=== PATIENT | female | born 1970 | race Caucasian/White ===

== ENCOUNTER 2019-02-18 11:09 | Emergency (ER) | payer SELFPAY ==
[~2019-02-18] VITALS: Ht 157.5 cm; Wt 61.4 kg
[2019-02-18] MEDS ORDERED: heparin sodium, porcine/PF 100unit/ml 5ML syringe IV PRN (11:40)
[2019-02-18 12:38] LABS: BASOPHILS % (AUTO) 0.2 % (0-1); EOSINOPHILS # (AUTO) 0.1 X10'3 (0-0.9); EOSINOPHILS % (AUTO) 1.5 % (0-6); HEMATOCRIT 39.7 % (35.0-45.0); LYMPHOCYTES # (AUTO) 1.6 X10'3 (1.1-4.8); LYMPHOCYTES % (AUTO) 25.7 % (21-51); MEAN CORPUSCULAR HEMOGLOBIN 33.4 PG (27.0-31.0); MEAN CORPUSCULAR HGB CONC 35.4 g/dL (33.0-36.5); MEAN CORPUSCULAR VOLUME 94.4 FL (78-98); MEAN PLATELET VOLUME 8.1 FL (7.4-10.4); MONOCYTES # (AUTO) 0.4 X10'3 (0-0.9); MONOCYTES % (AUTO) 6.5 % (2-12); NEUTROPHILS # (AUTO) 4.1 X10'3 (1.8-7.7); NEUTROPHILS % (AUTO) 66.1 % (42-75); PLATELET COUNT 207 X10'3 (140-440); RED CELL DISTRIBUTION WIDTH 13.9 % (11.5-14.5); WHITE BLOOD COUNT 6.2 X10'3 (4.5-11.0)
[2019-02-18 12:48] LABS: ALANINE AMINOTRANSFERASE 34 U/L (12-78); ALBUMIN/GLOBULIN RATIO 1.1 (1.1-1.5); ALKALINE PHOSPHATASE 42 IU/L (46-116); ANION GAP 12 (8-16); ASPARTATE AMINO TRANSFERASE 20 U/L (10-37); BILIRUBIN,TOTAL 0.9 MG/DL (0.1-1.0); BLOOD UREA NITROGEN 11 MG/DL (7-18); BUN/CREATININE RATIO 11.3 (6.6-38.0); CALCIUM 9.3 MG/DL (8.5-10.1); CHLORIDE 109 MMOL/L (99-107); CREATININE 0.97 MG/DL (0.40-0.90); GLUCOSE 100 MG/DL (70-104); POTASSIUM 3.2 MMOL/L (3.5-5.1); SODIUM 143 MMOL/L (135-145); TOTAL CARBON DIOXIDE 22.4 MMOL/L (24-32); TOTAL PROTEIN 7.5 G/DL (6.4-8.2); eGFR 62 ML/MIN
[2019-02-18 12:58] LABS: D-DIMER < 0.19 MG/L FEU (0-0.50); PARTIAL THROMBOPLASTIN TIME 26 SECONDS (22-32)
[2019-02-18] MEDS ORDERED: ketorolac trometh. 30mg/ml inj. IV ONE (13:10)
[2019-02-18] MEDS ORDERED: metoprolol tartrate 1mg/ml inj IV ONE (13:10)
[2019-02-18 13:45] VITALS: BP 119/43
== END 2019-02-18 13:50 | disposition home or self-care (01) ==
LOC: ER 11:10
DX: R00.0 Tachycardia, unspecified (principal); G35 Multiple sclerosis; I49.9 Cardiac arrhythmia, unspecified; Z88.8 Allergy status to other drugs, medicaments and biological substances
CPT/HCPCS: 36415; 71045; 80053; 84484; 85025; 85379; 85610; 85730; 93005; 96374; 96375; 99284; J1885; J3490

== ENCOUNTER 2019-03-17 15:28 | Emergency (ER) | payer SELFPAY ==
[~2019-03-17] VITALS: Ht 157.5 cm; Wt 82.0 kg
[2019-03-17 15:49] VITALS: BP 145/102
[2019-03-17 15:54] LABS: CLARITY,URINE CLEAR (Clear); COLOR,URINE STRAW (Yellow); GLUCOSE, URINE NEGATIVE (Neg); KETONES,URINE NEGATIVE (Neg); LEUKOCYTE ESTERASE ,URINE NEGATIVE (Neg); NITRITES, URINE NEGATIVE (Neg); OCCULT BLOOD,URINE NEGATIVE (Neg); PROTEIN,URINE NEGATIVE (Neg); UROBILINOGEN,URINE 0.2 E.U/dL (0.2-1.0)
[2019-03-17 15:55] LABS: URINE HCG NEGATIVE (NEG)
[2019-03-17 16:24] LABS: UA COLLECTION TYPE CLN CATCH MIDSTREAM
[2019-03-17 16:39] LABS: BASOPHILS % (AUTO) 0.4 % (0-1); EOSINOPHILS # (AUTO) 0.3 X10'3 (0-0.9); EOSINOPHILS % (AUTO) 3.3 % (0-6); HEMATOCRIT 39.6 % (35.0-45.0); HEMOGLOBIN 13.9 g/dl (12.0-16.0); LYMPHOCYTES # (AUTO) 2.2 X10'3 (1.1-4.8); LYMPHOCYTES % (AUTO) 25.1 % (21-51); MEAN CORPUSCULAR HEMOGLOBIN 33.7 PG (27.0-31.0); MEAN CORPUSCULAR HGB CONC 35.1 g/dL (33.0-36.5); MEAN CORPUSCULAR VOLUME 95.9 FL (78-98); MEAN PLATELET VOLUME 7.6 FL (7.4-10.4); MONOCYTES # (AUTO) 0.7 X10'3 (0-0.9); MONOCYTES % (AUTO) 7.8 % (2-12); NEUTROPHILS # (AUTO) 5.5 X10'3 (1.8-7.7); NEUTROPHILS % (AUTO) 63.4 % (42-75); PLATELET COUNT 240 X10'3 (140-440); RED BLOOD COUNT 4.12 X10'6 (4.20-5.60); RED CELL DISTRIBUTION WIDTH 14.2 % (11.5-14.5); WHITE BLOOD COUNT 8.7 X10'3 (4.5-11.0)
[2019-03-17 16:47] LABS: PARTIAL THROMBOPLASTIN TIME 28 SECONDS (22-32)
[2019-03-17 16:50] LABS: ALANINE AMINOTRANSFERASE 37 U/L (12-78); ALBUMIN 4.1 G/DL (3.4-5.0); ALBUMIN/GLOBULIN RATIO 1.1 (1.1-1.5); ALKALINE PHOSPHATASE 44 IU/L (46-116); ANION GAP 10 (8-16); ASPARTATE AMINO TRANSFERASE 18 U/L (10-37); BILIRUBIN,TOTAL 0.8 MG/DL (0.1-1.0); BLOOD UREA NITROGEN 12 MG/DL (7-18); BUN/CREATININE RATIO 15.2 (6.6-38.0); CALCIUM 9.3 MG/DL (8.5-10.1); CHLORIDE 107 MMOL/L (99-107); CREATININE 0.79 MG/DL (0.40-0.90); GLUCOSE 104 MG/DL (70-104); POTASSIUM 3.5 MMOL/L (3.5-5.1); SODIUM 141 MMOL/L (135-145); TOTAL CARBON DIOXIDE 24.3 MMOL/L (24-32); TOTAL PROTEIN 7.7 G/DL (6.4-8.2); eGFR 78 ML/MIN
[2019-03-17] MEDS ORDERED: ALBU6.7H9 INH (17:03)
[2019-03-17] MEDS ORDERED: PRED20TA PO (17:17)
== END 2019-03-17 17:24 | disposition home or self-care (01) ==
LOC: ER 15:29
DX: R06.02 Shortness of breath (principal); R06.00 Dyspnea, unspecified; R05 Cough; R00.2 Palpitations; M54.9 Dorsalgia, unspecified; G35 Multiple sclerosis; Z88.8 Allergy status to other drugs, medicaments and biological substances; Z79.899 Other long term (current) drug therapy
CPT/HCPCS: 36415; 71046; 80053; 81003; 81025; 84484; 85025; 85610; 85730; 93005; 99284

== ENCOUNTER 2019-03-22 16:53 | Emergency (ER) | payer MEDICAID, OTHER ==
[~2019-03-22] VITALS: Ht 157.5 cm; Wt 86.4 kg
[~2019-03-22 16:53] MED LIST: ALBU6.7H9 INH; PRED20TA PO
[2019-03-22 21:23] LABS: BASOPHILS # (AUTO) 0.1 X10'3 (0-0.2); BASOPHILS % (AUTO) 0.7 % (0-1); EOSINOPHILS # (AUTO) 0.4 X10'3 (0-0.9); EOSINOPHILS % (AUTO) 4.1 % (0-6); HEMATOCRIT 36.9 % (35.0-45.0); LYMPHOCYTES # (AUTO) 2.1 X10'3 (1.1-4.8); LYMPHOCYTES % (AUTO) 24.9 % (21-51); MEAN CORPUSCULAR HGB CONC 35.3 g/dL (33.0-36.5); MEAN CORPUSCULAR VOLUME 96.4 FL (78-98); MEAN PLATELET VOLUME 7.8 FL (7.4-10.4); MONOCYTES # (AUTO) 0.7 X10'3 (0-0.9); MONOCYTES % (AUTO) 8.2 % (2-12); NEUTROPHILS # (AUTO) 5.3 X10'3 (1.8-7.7); NEUTROPHILS % (AUTO) 62.1 % (42-75); PLATELET COUNT 225 X10'3 (140-440); RED BLOOD COUNT 3.83 X10'6 (4.20-5.60); RED CELL DISTRIBUTION WIDTH 13.8 % (11.5-14.5); WHITE BLOOD COUNT 8.6 X10'3 (4.5-11.0)
[2019-03-22 21:35] LABS: ALANINE AMINOTRANSFERASE 37 U/L (12-78); ALBUMIN 3.8 G/DL (3.4-5.0); ALBUMIN/GLOBULIN RATIO 1.1 (1.1-1.5); ALKALINE PHOSPHATASE 40 IU/L (46-116); ANION GAP 8 (8-16); ASPARTATE AMINO TRANSFERASE 23 U/L (10-37); BILIRUBIN,TOTAL 0.7 MG/DL (0.1-1.0); BLOOD UREA NITROGEN 13 MG/DL (7-18); BUN/CREATININE RATIO 17.8 (6.6-38.0); CALCIUM 8.8 MG/DL (8.5-10.1); CHLORIDE 107 MMOL/L (99-107); CREATININE 0.73 MG/DL (0.40-0.90); GLUCOSE 96 MG/DL (70-104); POTASSIUM 3.5 MMOL/L (3.5-5.1); SODIUM 142 MMOL/L (135-145); TOTAL CARBON DIOXIDE 26.7 MMOL/L (24-32); TOTAL PROTEIN 7.3 G/DL (6.4-8.2); eGFR 86 ML/MIN
[2019-03-22 21:53] LABS: PARTIAL THROMBOPLASTIN TIME 123 SECONDS (22-32)
[2019-03-22] MEDS ORDERED: HYDROcodone/acetaminophen 10/325mg tab PO ONE (22:30)
[2019-03-22 22:35] VITALS: BP 146/82
[2019-03-22] MEDS ORDERED: IBUP-1986 PO (22:35)
[2019-03-22] MEDS ORDERED: GUAI473S11 PO (22:35)
[2019-03-22] MEDS ORDERED: heparin sodium, porcine/PF 100unit/ml 5ML syringe IV STA (22:40)
== END 2019-03-22 22:54 | disposition home or self-care (01) ==
LOC: ER 16:56
DX: R06.02 Shortness of breath (principal); M54.9 Dorsalgia, unspecified; G35 Multiple sclerosis; I10 Essential (primary) hypertension; Z90.49 Acquired absence of other specified parts of digestive tract; Z98.890 Other specified postprocedural states; Z88.8 Allergy status to other drugs, medicaments and biological substances; Z79.899 Other long term (current) drug therapy
CPT/HCPCS: 36415; 71045; 80053; 83880; 84443; 85025; 85610; 85651; 85730; 93005; 96374; 99284; J1642

== ENCOUNTER 2019-06-23 11:31 | Emergency (ER) | payer MEDICAID, MEDICARE ==
[~2019-06-23] VITALS: Ht 157.5 cm; Wt 86.4 kg
[~2019-06-23 11:31] MED LIST changes: +IBUP-1986 PO; -PRED20TA PO
[2019-06-23] MEDS ORDERED: metoclopramide 5 mg/ml inj IV ONE (12:15)
[2019-06-23] MEDS ORDERED: diphenhydrAMINE 50 mg/ml inj IV ONE (12:15)
[2019-06-23] MEDS ORDERED: normal saline 1000ML IV soln IVB ONE (12:15)
[2019-06-23] MEDS ORDERED: ketorolac trometh. 30mg/ml inj. IV ONE (12:15)
--- NOTE | 2019-06-23 12:29 | NUR ---
pt to ct via wheelchair
[2019-06-23 12:49] LABS: CLARITY,URINE SLIGHTLY CLOUDY (Clear); COLOR,URINE YELLOW (Yellow); GLUCOSE, URINE NEGATIVE (Neg); KETONES,URINE NEGATIVE (Neg); LEUKOCYTE ESTERASE ,URINE SMALL (Neg); NITRITES, URINE NEGATIVE (Neg); OCCULT BLOOD,URINE NEGATIVE (Neg); PROTEIN,URINE NEGATIVE (Neg); UROBILINOGEN,URINE 0.2 E.U/dL (0.2-1.0)
[2019-06-23 12:50] LABS: UA COLLECTION TYPE CLN CATCH MIDSTREAM
[2019-06-23 12:55] LABS: URINE AMPHETAMINE SCREEN NEGATIVE (Neg); URINE BARBITUATE SCREEN NEGATIVE (Neg); URINE BENZODIAZEPINES SCREEN NEGATIVE (Neg); URINE CANNABINOID SCREEN NEGATIVE (Neg); URINE COCAINE SCREEN NEGATIVE (Neg); URINE METHADONE SCREEN NEGATIVE (Neg); URINE OPIATE SCREEN NEGATIVE (Neg); URINE PHENCYCLIDINE SCREEN NEGATIVE (Neg)
[2019-06-23 12:57] LABS: BACTERIA,URINE FEW /HPF (Neg); MUCUS STRANDS FEW /LPF (Neg); RBC,URINE 0-2 /HPF (0-2); SQUAMOUS EPITHELIAL CELL,UR MANY /LPF (FEW)
[2019-06-23 14:11] LABS: BASOPHILS % (AUTO) 0.3 % (0-1); EOSINOPHILS % (AUTO) 0.7 % (0-6); HEMATOCRIT 35.8 % (35.0-45.0); HEMOGLOBIN 12.8 g/dl (12.0-16.0); LYMPHOCYTES # (AUTO) 1.7 X10'3 (1.1-4.8); LYMPHOCYTES % (AUTO) 27.3 % (21-51); MEAN CORPUSCULAR HEMOGLOBIN 33.6 PG (27.0-31.0); MEAN CORPUSCULAR HGB CONC 35.7 g/dL (33.0-36.5); MEAN PLATELET VOLUME 7.8 FL (7.4-10.4); MONOCYTES # (AUTO) 0.3 X10'3 (0-0.9); MONOCYTES % (AUTO) 4.8 % (2-12); NEUTROPHILS # (AUTO) 4.3 X10'3 (1.8-7.7); NEUTROPHILS % (AUTO) 66.9 % (42-75); PLATELET COUNT 206 X10'3 (140-440); RED CELL DISTRIBUTION WIDTH 13.2 % (11.5-14.5); WHITE BLOOD COUNT 6.4 X10'3 (4.5-11.0)
[2019-06-23 14:26] LABS: ALANINE AMINOTRANSFERASE 12 U/L (12-78); ALBUMIN 3.6 G/DL (3.4-5.0); ALKALINE PHOSPHATASE 30 IU/L (46-116); ANION GAP 11 (8-16); ASPARTATE AMINO TRANSFERASE 6 U/L (10-37); BILIRUBIN,TOTAL 0.4 MG/DL (0.1-1.0); BLOOD UREA NITROGEN 13 MG/DL (7-18); BUN/CREATININE RATIO 13.5 (6.6-38.0); CALCIUM 8.5 MG/DL (8.5-10.1); CHLORIDE 107 MMOL/L (99-107); CREATININE 0.96 MG/DL (0.40-0.90); GLUCOSE 93 MG/DL (70-104); POTASSIUM 3.8 MMOL/L (3.5-5.1); SODIUM 141 MMOL/L (135-145); TOTAL PROTEIN 7.1 G/DL (6.4-8.2); eGFR 63 ML/MIN
[2019-06-23] MEDS ORDERED: fentaNYL/PF 50MCG/1 ML 2ML syringe IV ONE (14:30)
--- NOTE | 2019-06-23 14:33 | NUR ---
Pt up to restroom.
[2019-06-23 15:37] VITALS: BP 124/68
== END 2019-06-23 15:39 | disposition home or self-care (01) ==
LOC: ER 11:32
DX: G43.909 Migraine, unspecified, not intractable, without status migrainosus (principal); R07.89 Other chest pain; R42 Dizziness and giddiness; R05 Cough; I10 Essential (primary) hypertension; Z90.49 Acquired absence of other specified parts of digestive tract; Z98.890 Other specified postprocedural states; Z91.041 Radiographic dye allergy status; Z79.899 Other long term (current) drug therapy
CPT/HCPCS: 36415; 70450; 80053; 80305; 81001; 85025; 93005; 96361; 96374; 96375; 99284; J1200; J1885; J2765; J3010; J7030

== ENCOUNTER 2020-01-20 08:59 | Day surgery (SDC) | payer MEDICARE, MEDICAID ==
[~2020-01-20] VITALS: Ht 157.5 cm; Wt 105.2 kg
[2020-01-20] MEDS ORDERED: albumin 25% 100mL bottle x 1 IV PRN (09:25)
[2020-01-20] MEDS ORDERED: normal saline 1000ml 1,000 ML IV SCH (09:30)
[2020-01-20] MEDS ORDERED: POTA8TAB3 PO (10:08)
[2020-01-20] MEDS ORDERED: CYAN250010 PO (10:08)
[2020-01-20] MEDS ORDERED: FLUT16SP2 BOTHNARES (10:08)
[2020-01-20] MEDS ORDERED: MULT-1085 PO (10:08)
[2020-01-20] MEDS ORDERED: DIPH50CA46 PO (10:08)
[2020-01-20] MEDS ORDERED: ROPI1TAB6 PO (10:08)
[2020-01-20] MEDS ORDERED: METO-411 PO (10:08)
[2020-01-20] MEDS ORDERED: IBUP-1984 PO (10:08)
[2020-01-20] MEDS ORDERED: BACL10TA PO (10:08)
[2020-01-20] MEDS ORDERED: ONDA4TAB6 PO (10:08)
[2020-01-20 10:09] VITALS: BP 143/72
== END 2020-01-20 11:10 | disposition home or self-care (01) ==
LOC: SSTAY O 08:59
PROVIDERS: ATTEND Radiology Vascular & Interventional Radiology
DX: T82.524A Displacement of infusion catheter, initial encounter (principal); Z53.8 Procedure and treatment not carried out for other reasons; G43.909 Migraine, unspecified, not intractable, without status migrainosus; G35 Multiple sclerosis; I10 Essential (primary) hypertension; Z90.49 Acquired absence of other specified parts of digestive tract; Z88.8 Allergy status to other drugs, medicaments and biological substances; Z79.899 Other long term (current) drug therapy; Z11.59 Encounter for screening for other viral diseases; Y83.8 Other surgical procedures as the cause of abnormal reaction of the patient, or of later complication, without mention of misadventure at the time of the procedure; Y92.89 Other specified places as the place of occurrence of the external cause
CPT/HCPCS: 36415; 76937; U0003

== ENCOUNTER 2020-01-23 10:37 | Day surgery (SDC) | payer MEDICARE, MEDICAID ==
[~2020-01-23] VITALS: Ht 157.5 cm; Wt 105.8 kg
[~2020-01-23 10:37] MED LIST changes: -ALBU6.7H9 INH; +BACL10TA PO; +CYAN250010 PO; +DIPH50CA46 PO; +FLUT16SP2 BOTHNARES; +IBUP-1984 PO; -IBUP-1986 PO; +METO-411 PO; +MULT-1085 PO; +ONDA4TAB6 PO; +POTA8TAB3 PO; +ROPI1TAB6 PO
[2020-01-23 11:05] VITALS: BP 124/69
[2020-01-23] MEDS ORDERED: normal saline 1000ml 1,000 ML IV SCH (11:10)
[2020-01-23] MEDS ORDERED: midazolam 2 mg/2 ml injection ONE ×2 (12:44→13:33)
[2020-01-23] MEDS ORDERED: heparin sodium, porcine/PF 100unit/ml 5ML syringe ONE (12:44)
[2020-01-23] MEDS ORDERED: fentaNYL/PF 50MCG/1 ML 2ML syringe ONE ×2 (12:44→13:33)
[2020-01-23] MEDS ORDERED: LIDOcaine 1%/PF 5ML 10 MG/ML VIAL ONE (12:44)
[2020-01-23 14:05] VITALS: BP 98/70
[2020-01-23 14:15] VITALS: BP 108/58
[2020-01-23 14:30] VITALS: BP 88/62
[2020-01-23 14:45] VITALS: BP 104/47
[2020-01-23 15:00] VITALS: BP 102/55
--- NOTE | 2020-01-23 15:00 | NUR ---
PATIENT'S VITAL SIGNS STABLE PATIENT IS STABLE. DR. BARON NOTIFIED AND UPDATED. OK FOR PATIENT TO BE DISCHARGED NOW.
== END 2020-01-23 15:25 | disposition home or self-care (01) ==
LOC: SSTAY O 10:37
PROVIDERS: ATTEND Radiology Vascular & Interventional Radiology
DX: T82.528A Displacement of other cardiac and vascular devices and implants, initial encounter (principal); G35 Multiple sclerosis; G32.89 Other specified degenerative disorders of nervous system in diseases classified elsewhere; Y83.8 Other surgical procedures as the cause of abnormal reaction of the patient, or of later complication, without mention of misadventure at the time of the procedure; Y92.89 Other specified places as the place of occurrence of the external cause
CPT/HCPCS: 36561; 76937; 77001; 99152; 99153; C1769; C1788; C1894; J1642; J2250; J3010; J7030

== ENCOUNTER 2020-02-12 09:25 | Day surgery (SDC) | payer MEDICARE, MEDICAID ==
[~2020-02-12] VITALS: Ht 157.5 cm; Wt 106.0 kg
[2020-02-12] VITALS (9 sets, daily range): BP systolic 102–138; BP diastolic 58–82
[~2020-02-12 09:25] MED LIST changes: +DOCUMENT DATE & TIME OF BETA-BLOCKER PO ONE; +cefazolin/dext.iso 2gm/50ml 50 ML IV ONE; +famotidine 20mg tablet PO ONE; +ringers solution, lacted 1,000 ML IV SCH
[2020-02-12 12:07] LABS: BASOPHILS # (AUTO) 0.1 X10'3 (0-0.2); BASOPHILS % (AUTO) 0.8 % (0-1); EOSINOPHILS # (AUTO) 0.2 X10'3 (0-0.9); EOSINOPHILS % (AUTO) 2.5 % (0-6); LYMPHOCYTES # (AUTO) 2.3 X10'3 (1.1-4.8); LYMPHOCYTES % (AUTO) 28.1 % (21-51); MEAN CORPUSCULAR HEMOGLOBIN 32.5 PG (27.0-31.0); MEAN CORPUSCULAR HGB CONC 35.1 g/dL (33.0-36.5); MEAN CORPUSCULAR VOLUME 92.6 FL (78-98); MEAN PLATELET VOLUME 7.3 FL (7.4-10.4); MONOCYTES # (AUTO) 0.5 X10'3 (0-0.9); MONOCYTES % (AUTO) 6.1 % (2-12); NEUTROPHILS # (AUTO) 5.2 X10'3 (1.8-7.7); NEUTROPHILS % (AUTO) 62.5 % (42-75); PRE OP HEMATOCRIT 38.4 % (35.0-45.0); PRE OP HEMOGLOBIN 13.5 g/dL (12.0-16.0); PRE OP PLATELET COUNT 260 X10'3 (140-440); RED BLOOD COUNT 4.14 X10'6 (4.20-5.60); RED CELL DISTRIBUTION WIDTH 13.8 % (11.5-14.5)
[2020-02-12] MEDS ORDERED: LIDOcaine 1% 30ml preserv. free vial ONE (12:15)
[2020-02-12 12:21] LABS: ALBUMIN 3.6 G/DL (3.4-5.0); ALBUMIN/GLOBULIN RATIO 0.9 (1.1-1.5); ALKALINE PHOSPHATASE 30 IU/L (46-116); BLOOD UREA NITROGEN 11 MG/DL (7-18); BUN/CREATININE RATIO 12.9 (6.6-38.0); CALCIUM 8.7 MG/DL (8.5-10.1); CHLORIDE 106 MMOL/L (99-107); CREATININE 0.85 MG/DL (0.40-0.90); PRE OP ALT 24 U/L (30-65); PRE OP ANION GAP 10 (8-16); PRE OP AST 18 U/L (10-37); PRE OP BILIRUB, TOTAL 0.4 MG/DL (0.0-1.0); PRE OP GLUCOSE 103 MG/DL (70-104); PRE OP POTASSIUM 4.2 MMOL/L (3.4-5.1); PRE OP SODIUM 139 MMOL/L (135-145); TOTAL CARBON DIOXIDE 22.6 MMOL/L (24-32); TOTAL PROTEIN 7.5 G/DL (6.4-8.2); eGFR 72 ML/MIN
[2020-02-12] MEDS ORDERED: BUPIVAcaine/PF 2.5 mg/ml (0.25%) 30ml vial ONE (12:37)
[2020-02-12] MEDS ORDERED: dexamethasone sod phosphate 10mg/ml inj ONE (12:47)
[2020-02-12] MEDS ORDERED: fentaNYL/PF 50MCG/1 ML 2ML syringe ONE (12:54)
[2020-02-12] MEDS ORDERED: MIDAZolam 5mg/5ml vial ONE ×2 (12:54→13:11)
[2020-02-12] MEDS ORDERED: ringers solution, lacted 1,000 ML IV SCH (13:01)
[2020-02-12] MEDS ORDERED: morphine 2 MG/ML inj. syringe IV PRN (13:05)
[2020-02-12] MEDS ORDERED: morphine 4 MG/ML inj SYRINge IV PRN (13:05)
[2020-02-12] MEDS ORDERED: ondansetron/PF 4mg/2ml inj IV PRN (13:05)
[2020-02-12] MEDS ORDERED: proCHLORperazine 10 MG/2 ml inj IV PRN (13:05)
[2020-02-12] MEDS ORDERED: meperidine/PF 25mg/ml syringe IV PRN ×3 (13:05)
--- NOTE | 2020-02-12 13:25 | NUR ---
Received from OR via BED, accompanied by Anesthesiologist DR BARRIENTOS-- and report given by Anesthesiolgist. PATIENT A&OX4, DENIES PAIN, V/S WNL, NEUROVASCULAR CHECKS INTACT, 20G PIV LUE, SCD ON, DRESSING TO LEFT CHEST CDI
[2020-02-12] MEDS ORDERED: HYDROcodone/acetaminophen 10/325mg tab PO ONE (14:10)
--- NOTE | 2020-02-12 14:35 | NUR ---
PATIENT A&OX4, DENIES PAIN, V/S WNL, NEUROVASCULAR CHECKS INTACT, 20G PIV LUE D/C, SCD OFF, DRESSING TO LEFT CHEST CDI. I HAVE REVIEWED D/C INSTRUCTIONS WITH PATIENT AND FAMILY AND THEY HAVE VERBALIZED UNDERSTANDING. PATIENT D/C HOME WITH ALL BELONGINGS AND FAMILY GAVE TRANSPORT HOME.
== END 2020-02-12 14:35 | disposition home or self-care (01) ==
LOC: PAS 09:25
PROVIDERS: ATTEND Surgery
DX: Z45.2 Encounter for adjustment and management of vascular access device (principal); G35 Multiple sclerosis; K21.9 Gastro-esophageal reflux disease without esophagitis; G43.909 Migraine, unspecified, not intractable, without status migrainosus; I10 Essential (primary) hypertension; Z90.49 Acquired absence of other specified parts of digestive tract; Z98.890 Other specified postprocedural states; Z79.899 Other long term (current) drug therapy; Z91.041 Radiographic dye allergy status; Z87.891 Personal history of nicotine dependence
CPT/HCPCS: 36415; 36590; 76937; 80053; 85025; J2001; J2250; J3010; J3490; A4215; A6258; A6449; A7000; J1100; J7120

== ENCOUNTER 2020-02-15 19:46 | Emergency (ER) | payer MEDICARE, MEDICAID ==
[~2020-02-15] VITALS: Ht 157.5 cm; Wt 106.6 kg
[~2020-02-15 19:46] MED LIST changes: -DOCUMENT DATE & TIME OF BETA-BLOCKER PO ONE; -cefazolin/dext.iso 2gm/50ml 50 ML IV ONE; -famotidine 20mg tablet PO ONE; -ringers solution, lacted 1,000 ML IV SCH
--- NOTE | 2020-02-15 23:05 | NUR ---
AMY SPOKE WITH VASCULAR; WILL CONTINUE TO MONITOR.
--- NOTE | 2020-02-15 23:08 | NUR ---
UPDATED ED MD OHLFS REGARDING PT'S PAIN, VERBAL ORDER FOR 600 MG IBUPROFEN
[2020-02-15] MEDS ORDERED: ibuprofen 200mg tablet PO ONE (23:10)
--- NOTE | 2020-02-15 23:59 | NUR ---
VASCULAR AT BEDSIDE
[2020-02-16 00:28] VITALS: BP 144/64
== END 2020-02-16 00:30 | disposition home or self-care (01) ==
LOC: ER 19:47
DX: M79.604 Pain in right leg (principal); R06.02 Shortness of breath; G43.909 Migraine, unspecified, not intractable, without status migrainosus; G35 Multiple sclerosis; I10 Essential (primary) hypertension; Z90.49 Acquired absence of other specified parts of digestive tract; Z98.890 Other specified postprocedural states; Z88.8 Allergy status to other drugs, medicaments and biological substances; Z79.899 Other long term (current) drug therapy
CPT/HCPCS: 93971; 99284; 99285

== ENCOUNTER 2020-03-03 10:20 | Emergency (ER) | payer MEDICARE, MEDICAID ==
[~2020-03-03] VITALS: Ht 157.5 cm; Wt 86.4 kg
[2020-03-03] MEDS ORDERED: HYDROcodone/acetaminophen 10/325mg tab PO ONE (10:35)
[2020-03-03] MEDS ORDERED: ketorolac trometh. 30mg/ml inj. IM ONE (11:00)
[2020-03-03] MEDS ORDERED: HYDR-4383 PO (11:22)
[2020-03-03 11:57] VITALS: BP 162/87
== END 2020-03-03 11:58 | disposition home or self-care (01) ==
LOC: ER 10:20
DX: M25.512 Pain in left shoulder (principal); R53.1 Weakness; G43.909 Migraine, unspecified, not intractable, without status migrainosus; I10 Essential (primary) hypertension; Z90.49 Acquired absence of other specified parts of digestive tract; Z98.890 Other specified postprocedural states; Z88.8 Allergy status to other drugs, medicaments and biological substances; Z79.899 Other long term (current) drug therapy
CPT/HCPCS: 73030; 96372; 99283; J1885

== ENCOUNTER 2020-11-05 20:52 | Emergency (ER) | payer MEDICARE, MEDICAID ==
[~2020-11-05] VITALS: Ht 157.5 cm; Wt 112.5 kg
[~2020-11-05 20:52] MED LIST changes: +HYDR-4383 PO
[2020-11-05 23:15] LABS: BASOPHILS % (AUTO) 0.3 % (0-1); EOSINOPHILS # (AUTO) 0.2 X10'3 (0-0.9); EOSINOPHILS % (AUTO) 2.1 % (0-6); HEMATOCRIT 40.1 % (35.0-45.0); LYMPHOCYTES # (AUTO) 1.9 X10'3 (1.1-4.8); LYMPHOCYTES % (AUTO) 23.7 % (21-51); MEAN CORPUSCULAR HEMOGLOBIN 32.1 PG (27.0-31.0); MEAN CORPUSCULAR HGB CONC 34.9 g/dL (33.0-36.5); MONOCYTES # (AUTO) 0.6 X10'3 (0-0.9); MONOCYTES % (AUTO) 7.8 % (2-12); NEUTROPHILS # (AUTO) 5.4 X10'3 (1.8-7.7); NEUTROPHILS % (AUTO) 66.1 % (42-75); PLATELET COUNT 297 X10'3 (140-440); RED BLOOD COUNT 4.36 X10'6 (4.20-5.60); RED CELL DISTRIBUTION WIDTH 14.6 % (11.5-14.5); WHITE BLOOD COUNT 8.1 X10'3 (4.5-11.0)
[2020-11-05 23:24] LABS: ALANINE AMINOTRANSFERASE 29 U/L (12-78); ALBUMIN 3.9 G/DL (3.4-5.0); ALBUMIN/GLOBULIN RATIO 0.8 (1.1-1.5); ALKALINE PHOSPHATASE 43 IU/L (46-116); ANION GAP 13 (8-16); ASPARTATE AMINO TRANSFERASE 20 U/L (10-37); BILIRUBIN,TOTAL 0.5 MG/DL (0.1-1.0); BLOOD UREA NITROGEN 10 MG/DL (7-18); CALCIUM 8.9 MG/DL (8.5-10.1); CHLORIDE 102 MMOL/L (99-107); CREATININE 1.11 MG/DL (0.40-0.90); GLUCOSE 114 MG/DL (70-104); POTASSIUM 3.2 MMOL/L (3.5-5.1); SODIUM 140 MMOL/L (135-145); TOTAL CARBON DIOXIDE 24.9 MMOL/L (24-32); TOTAL PROTEIN 8.5 G/DL (6.4-8.2); eGFR 53 ML/MIN
[2020-11-05] MEDS ORDERED: potassium Cl 20 mEq SR tablet PO STA (23:35)
[2020-11-05 23:54] VITALS: BP 173/95
== END 2020-11-05 23:50 | disposition home or self-care (01) ==
LOC: ER 20:52
DX: R00.2 Palpitations (principal); R50.9 Fever, unspecified; E87.6 Hypokalemia; G43.909 Migraine, unspecified, not intractable, without status migrainosus; I10 Essential (primary) hypertension; Z23 Encounter for immunization; Z90.49 Acquired absence of other specified parts of digestive tract; Z98.890 Other specified postprocedural states; Z88.8 Allergy status to other drugs, medicaments and biological substances; Z79.899 Other long term (current) drug therapy
CPT/HCPCS: 36415; 71045; 80053; 83880; 84484; 85025; 93005; 99285

== ENCOUNTER 2020-12-14 16:37 | Emergency (ER) | payer MEDICARE, MEDICAID ==
[~2020-12-14] VITALS: Ht 157.5 cm; Wt 111.0 kg
[2020-12-14 16:48] VITALS: BP 184/96
[2020-12-14] MEDS ORDERED: ALBU8HFA PO (17:40)
[2020-12-14] MEDS ORDERED: BENZ-16 PO (17:40)
[2020-12-14] MEDS ORDERED: AMOX-422 PO (17:40)
== END 2020-12-14 18:06 | disposition home or self-care (01) ==
LOC: ER 16:38
DX: J20.9 Acute bronchitis, unspecified (principal); G43.909 Migraine, unspecified, not intractable, without status migrainosus; I10 Essential (primary) hypertension; Z90.49 Acquired absence of other specified parts of digestive tract; Z88.8 Allergy status to other drugs, medicaments and biological substances; Z79.2 Long term (current) use of antibiotics; Z79.899 Other long term (current) drug therapy
CPT/HCPCS: 99283

== ENCOUNTER 2021-01-15 20:02 | Outpatient (CLI) | payer MEDICARE, MEDICAID ==
[2021-01-15 21:27] LABS: BASOPHILS % (AUTO) 0.4 % (0-1); EOSINOPHILS # (AUTO) 0.2 X10'3 (0-0.9); EOSINOPHILS % (AUTO) 2.9 % (0-6); HEMATOCRIT 36.9 % (35.0-45.0); HEMOGLOBIN 12.7 g/dl (12.0-16.0); LYMPHOCYTES # (AUTO) 2.6 X10'3 (1.1-4.8); LYMPHOCYTES % (AUTO) 32.1 % (21-51); MEAN CORPUSCULAR HEMOGLOBIN 31.2 PG (27.0-31.0); MEAN CORPUSCULAR HGB CONC 34.5 g/dL (33.0-36.5); MEAN CORPUSCULAR VOLUME 90.5 FL (78-98); MONOCYTES # (AUTO) 0.6 X10'3 (0-0.9); MONOCYTES % (AUTO) 7.9 % (2-12); NEUTROPHILS # (AUTO) 4.6 X10'3 (1.8-7.7); NEUTROPHILS % (AUTO) 56.7 % (42-75); PLATELET COUNT 299 X10'3 (140-440); RED BLOOD COUNT 4.07 X10'6 (4.20-5.60); RED CELL DISTRIBUTION WIDTH 13.6 % (11.5-14.5); WHITE BLOOD COUNT 8.1 X10'3 (4.5-11.0)
[2021-01-15 21:57] LABS: ALANINE AMINOTRANSFERASE 33 U/L (12-78); ALBUMIN 3.6 G/DL (3.4-5.0); ALBUMIN/GLOBULIN RATIO 1.1 (1.1-1.5); ALKALINE PHOSPHATASE 49 IU/L (46-116); ANION GAP 11 (8-16); ASPARTATE AMINO TRANSFERASE 28 U/L (10-37); BILIRUBIN,TOTAL 0.4 MG/DL (0.1-1.0); BLOOD UREA NITROGEN 12 MG/DL (7-18); CALCIUM 8.7 MG/DL (8.5-10.1); CHLORIDE 107 MMOL/L (99-107); GLUCOSE 64 MG/DL (70-104); POTASSIUM 3.8 MMOL/L (3.5-5.1); SODIUM 144 MMOL/L (135-145); TOTAL CARBON DIOXIDE 25.9 MMOL/L (24-32); eGFR 59 ML/MIN
== END 2021-01-15 23:59 | disposition home or self-care (01) ==
LOC: LAB SPEC 20:02
PROVIDERS: ATTEND Internal Medicine
DX: N17.9 Acute kidney failure, unspecified (principal); I10 Essential (primary) hypertension; Z79.2 Long term (current) use of antibiotics; Z90.49 Acquired absence of other specified parts of digestive tract
CPT/HCPCS: 36415; 80053; 83880; 84145; 85025

== ENCOUNTER 2021-11-30 21:48 | Observation (INO) | payer MEDICARE, MEDICAID ==
[~2021-11-30] VITALS: Ht 157.5 cm; Wt 115.9 kg
[~2021-11-30 21:48] MED LIST changes: +DIPH-907 PO; -DIPH50CA46 PO; -POTA8TAB3 PO; +POTA8TAB69 PO
[2021-11-30 22:46] LABS: BASOPHILS % (AUTO) 0.2 % (0-1); EOSINOPHILS # (AUTO) 0.3 X10'3 (0-0.9); EOSINOPHILS % (AUTO) 2.4 % (0-6); HEMATOCRIT 34.8 % (35.0-45.0); LYMPHOCYTES # (AUTO) 2.5 X10'3 (1.1-4.8); LYMPHOCYTES % (AUTO) 17.4 % (21-51); MEAN CORPUSCULAR HGB CONC 34.5 g/dL (33.0-36.5); MEAN CORPUSCULAR VOLUME 87.1 FL (78-98); MEAN PLATELET VOLUME 7.6 FL (7.4-10.4); MONOCYTES # (AUTO) 0.8 X10'3 (0-0.9); MONOCYTES % (AUTO) 5.2 % (2-12); NEUTROPHILS # (AUTO) 10.9 X10'3 (1.8-7.7); NEUTROPHILS % (AUTO) 74.8 % (42-75); PLATELET COUNT 314 X10'3 (140-440); RED BLOOD COUNT 3.99 X10'6 (4.20-5.60); RED CELL DISTRIBUTION WIDTH 15.4 % (11.5-14.5); WHITE BLOOD COUNT 14.6 X10'3 (4.5-11.0)
[2021-11-30 22:58] LABS: ALANINE AMINOTRANSFERASE 11 U/L (12-78); ALBUMIN 3.4 G/DL (3.4-5.0); ALBUMIN/GLOBULIN RATIO 0.9 (1.1-1.5); ALKALINE PHOSPHATASE 37 IU/L (46-116); ANION GAP 8 (8-16); ASPARTATE AMINO TRANSFERASE 21 U/L (10-37); BILIRUBIN,TOTAL 0.3 MG/DL (0.1-1.0); BLOOD UREA NITROGEN 10 MG/DL (7-18); BUN/CREATININE RATIO 9.6 (6.6-38.0); CALCIUM 8.3 MG/DL (8.5-10.1); CHLORIDE 103 MMOL/L (99-107); CREATININE 1.04 MG/DL (0.40-0.90); GLUCOSE 126 MG/DL (70-104); SODIUM 136 MMOL/L (135-145); TOTAL CARBON DIOXIDE 24.6 MMOL/L (24-32); TOTAL PROTEIN 7.2 G/DL (6.4-8.2); eGFR 57 ML/MIN
[2021-11-30 23:13] LABS: POTASSIUM 1.9 MMOL/L (3.5-5.1)
[2021-12-01] MEDS ORDERED: potassium Cl 20mEq/100mL bag 100 ML IV ONE ×3 (00:10→09:25)
--- NOTE | 2021-12-01 01:00 | NUR ---
NOTIFIED DR. CHAPMAN OF CONSISTENT HIGH BLOOD PRESSURE.
[2021-12-01] MEDS ORDERED: potassium Cl 20 mEq SR tablet PO ONE ×2 (02:45→05:30)
[2021-12-01] MEDS ORDERED: magnesium oxide 400mg tablet PO ONE (02:45)
[2021-12-01] MEDS ORDERED: potassium CL 10mEq/100ml bag 100 ML IV ONE ×2 (02:45→05:30)
[2021-12-01] MEDS ORDERED: magnesium 2GM in 50ml NS 50 ML IV ONE (02:45)
[2021-12-01 05:11] LABS: MAGNESIUM 1.9 MG/DL (1.5-2.4)
[2021-12-01 05:14] LABS: POTASSIUM 1.9 MMOL/L (3.5-5.1)
--- NOTE | 2021-12-01 09:12 | NUR ---
Called Dr. Murillo, discharge planner, re potassium lab 1.9 after 40 mEq IV and 40 mEq PO potassium and 2g IV Mg and 400 mg PO Mg; Blood pressure trending up: 194/93. No answer on telephone; no option for voice mail.
[2021-12-01] MEDS ORDERED: potassium Cl 20 mEq SR tablet PO STA ×2 (09:15→11:58)
--- NOTE | 2021-12-01 09:19 | NUR ---
Notified ER provider, Dr. Renteria, of low potassium and high blood pressure; orders placed.
[2021-12-01] MEDS ORDERED: metoprolol tartrate 50mg tablet PO ONE (09:20)
--- NOTE | 2021-12-01 10:34 | NUR ---
Patient assisted to bedside commode.
--- NOTE | 2021-12-01 12:30 | NUR ---
Patient assisted to bedside commode.
--- NOTE | 2021-12-01 12:36 | NUR ---
Patient given lunch tray.
[2021-12-01] MEDS ORDERED: acetaminophen 325mg tablet PO PRN ×2 (13:25)
[2021-12-01] MEDS ORDERED: ondansetron 4mg rapidly disintigrating tab PO PRN (13:25)
[2021-12-01] MEDS ORDERED: magnesium hydroxide 30ml (MOM) UD suspension PO PRN (13:25)
[2021-12-01] MEDS ORDERED: magnesium 4gm in 100ml NS 100 ML IV PRN (13:25)
[2021-12-01] MEDS ORDERED: ondansetron/PF 4mg/2ml inj IV PRN (13:25)
[2021-12-01] MEDS ORDERED: mag hydrox/Alum hydrox/simeth 30ml oral suspension PO PRN (13:25)
[2021-12-01] MEDS ORDERED: magnesium 2GM in 50ml NS 50 ML IV PRN (13:25)
[2021-12-01] MEDS ORDERED: acetaminophen 650mg rectal suppository RC PRN (13:25)
[2021-12-01] MEDS ORDERED: POTASSIUM BICARB 20meq eff tab 20 MEQ TABLET.EFF PO PRN ×2 (13:25)
[2021-12-01] MEDS ORDERED: magnesium Cl slow-release 64mg tablet PO PRN (13:25)
[2021-12-01] MEDS ORDERED: HYDROcodone/acetaminophen 10/325mg tab PO PRN (13:25)
[2021-12-01] MEDS ORDERED: HYDROcodone/acetaminophen 5mg/325mg tablet PO PRN (13:25)
[2021-12-01] MEDS ORDERED: ESCI-8 PO (13:46)
[2021-12-01] MEDS ORDERED: MODA100T31 PO (13:46)
[2021-12-01] MEDS ORDERED: LEVO5TAB13 PO (13:46)
[2021-12-01] MEDS ORDERED: BACL10TA2 PO (13:46)
[2021-12-01] MEDS ORDERED: PANT40TA54 PO (13:46)
[2021-12-01] MEDS ORDERED: MONT-40 PO (13:46)
[2021-12-01] MEDS ORDERED: HYDR-3927 PO (13:46)
[2021-12-01] MEDS ORDERED: IBUP-1986 PO (13:46)
[2021-12-01] MEDS ORDERED: NORT10CA2 PO (13:46)
[2021-12-01 14:06] LABS: BASOPHILS % (AUTO) 0.3 % (0-1); EOSINOPHILS # (AUTO) 0.1 X10'3 (0-0.9); EOSINOPHILS % (AUTO) 1.2 % (0-6); HEMATOCRIT 33.2 % (35.0-45.0); HEMOGLOBIN 11.4 g/dl (12.0-16.0); LYMPHOCYTES # (AUTO) 1.3 X10'3 (1.1-4.8); LYMPHOCYTES % (AUTO) 12.7 % (21-51); MEAN CORPUSCULAR HEMOGLOBIN 29.4 PG (27.0-31.0); MEAN CORPUSCULAR HGB CONC 34.4 g/dL (33.0-36.5); MEAN CORPUSCULAR VOLUME 85.3 FL (78-98); MEAN PLATELET VOLUME 7.6 FL (7.4-10.4); MONOCYTES # (AUTO) 0.4 X10'3 (0-0.9); NEUTROPHILS # (AUTO) 8.6 X10'3 (1.8-7.7); NEUTROPHILS % (AUTO) 81.8 % (42-75); PLATELET COUNT 300 X10'3 (140-440); RED BLOOD COUNT 3.89 X10'6 (4.20-5.60); RED CELL DISTRIBUTION WIDTH 15.7 % (11.5-14.5); WHITE BLOOD COUNT 10.5 X10'3 (4.5-11.0)
[2021-12-01] MEDS: potassium CL 10mEq/100ml bag 100 ML IV PRN ×3 (16:36→22:14)
[2021-12-01] MEDS ORDERED: METO100T14 PO (17:12)
[2021-12-01] MEDS ORDERED: TRAM50TA2 PO (17:12)
[2021-12-01] MEDS ORDERED: hydrOXYzine 25 MG tablet PO PRN (19:15)
[2021-12-01] MEDS ORDERED: traMADol 50MG tablet PO PRN (19:15)
[2021-12-01] MEDS: metoprolol tartrate 50mg tablet PO SCH (20:00)
[2021-12-01] MEDS: docusate sod 100mg capsule PO SCH (20:00)
[2021-12-01] MEDS: K and/or MAG REPLACEMENT MC SCH (20:00)
[2021-12-01] MEDS ORDERED: baclofen 10mg tablet PO SCH (21:00)
[2021-12-01 21:30] VITALS: BP 181/66
[2021-12-01 22:00] VITALS: BP 148/69
[2021-12-02] MEDS: potassium CL 10mEq/100ml bag 100 ML IV PRN ×5 (00:20→03:58)
[2021-12-02 02:00] VITALS: BP 117/45
--- NOTE | 2021-12-02 06:30 | NUR ---
Patient in room PCU 3014. I have received report from Treva LOMELI and had the opportunity to ask questions and assume patient care.
[2021-12-02 07:00] VITALS: BP 146/70
[2021-12-02] MEDS ORDERED: montelukast 10mg tablet PO SCH (08:00)
[2021-12-02] MEDS ORDERED: pantoprazole 40mg Tablet.DR PO SCH (08:00)
[2021-12-02] MEDS ORDERED: loratadine 10mg tablet PO SCH (08:00)
[2021-12-02] MEDS ORDERED: ESCITALOPRAM OXALATE 5 MG TABLET PO SCH (08:00)
[2021-12-02] MEDS ORDERED: modafinil 100mg tablet PO SCH (08:00)
[2021-12-02] MEDS: K and/or MAG REPLACEMENT MC SCH (08:00)
[2021-12-02] MEDS: docusate sod 100mg capsule PO SCH (08:00)
[2021-12-02] MEDS: ibuprofen tablet 400 MG TABLET PO SCH ×2 (08:20)
[2021-12-02] MEDS: metoprolol tartrate 50mg tablet PO SCH (08:21)
--- NOTE | 2021-12-02 08:33 | NUR ---
Page Sent promotional table spacer PAGER ID: [phone] MESSAGE: [id number]. Niki. Pt k is 3.2. Pt is wondering about IV/ oral combo, and running NS at 200 mL/hr while receiving K IV. Roberto RUBIO
[2021-12-02 09:53] LABS: BASOPHILS % (AUTO) 0.4 % (0-1); EOSINOPHILS # (AUTO) 0.2 X10'3 (0-0.9); EOSINOPHILS % (AUTO) 3.3 % (0-6); HEMATOCRIT 30.9 % (35.0-45.0); HEMOGLOBIN 10.5 g/dl (12.0-16.0); LYMPHOCYTES # (AUTO) 1.7 X10'3 (1.1-4.8); LYMPHOCYTES % (AUTO) 26.1 % (21-51); MEAN CORPUSCULAR HEMOGLOBIN 29.1 PG (27.0-31.0); MEAN CORPUSCULAR HGB CONC 33.9 g/dL (33.0-36.5); MEAN CORPUSCULAR VOLUME 85.7 FL (78-98); MEAN PLATELET VOLUME 7.7 FL (7.4-10.4); MONOCYTES # (AUTO) 0.4 X10'3 (0-0.9); MONOCYTES % (AUTO) 6.3 % (2-12); NEUTROPHILS # (AUTO) 4.2 X10'3 (1.8-7.7); NEUTROPHILS % (AUTO) 63.9 % (42-75); PLATELET COUNT 279 X10'3 (140-440); RED BLOOD COUNT 3.61 X10'6 (4.20-5.60); WHITE BLOOD COUNT 6.6 X10'3 (4.5-11.0)
[2021-12-02 10:04] LABS: ALANINE AMINOTRANSFERASE 14 U/L (12-78); ALBUMIN 2.8 G/DL (3.4-5.0); ALBUMIN/GLOBULIN RATIO 0.8 (1.1-1.5); ALKALINE PHOSPHATASE 29 IU/L (46-116); ANION GAP 11 (8-16); ASPARTATE AMINO TRANSFERASE 38 U/L (10-37); BILIRUBIN,TOTAL 0.4 MG/DL (0.1-1.0); BLOOD UREA NITROGEN 5 MG/DL (7-18); BUN/CREATININE RATIO 5.1 (6.6-38.0); CALCIUM 7.5 MG/DL (8.5-10.1); CHLORIDE 108 MMOL/L (99-107); CREATININE 0.98 MG/DL (0.40-0.90); GLUCOSE 171 MG/DL (70-104); POTASSIUM 3.4 MMOL/L (3.5-5.1); SODIUM 143 MMOL/L (135-145); TOTAL CARBON DIOXIDE 24.4 MMOL/L (24-32); TOTAL PROTEIN 6.1 G/DL (6.4-8.2); eGFR 61 ML/MIN
[2021-12-02 11:00] VITALS: BP 165/73
[2021-12-02] MEDS ORDERED: POTA10TA37 PO (12:30)
[2021-12-02] MEDS ORDERED: MAGN64TA8 PO (12:31)
--- NOTE | 2021-12-02 13:20 | NUR ---
Pt discahrged. IV and tele box removed with tele box [facility]. Reviewed discharge packet with pt and pt's father. Pt and pt's father were able to ask questions and verbalize understanding. Pt acknowledges that K is 3.4 and to take potassium and magnesium medication at discharge. Pharmacy at [facility] is called to verify that they received the prescription.Pt and pt's father walked out of the hospital to home.
== END 2021-12-02 13:20 | disposition home or self-care (01) ==
LOC: ER 21:48 → ED HOLD 12-01 13:25 → PCU 3S 12-01 20:30
PROVIDERS: ADMIT Family Medicine; ATTEND Family Medicine
DX: E87.6 Hypokalemia (principal); E83.42 Hypomagnesemia; I10 Essential (primary) hypertension; G35 Multiple sclerosis; N17.9 Acute kidney failure, unspecified; R00.0 Tachycardia, unspecified; G43.909 Migraine, unspecified, not intractable, without status migrainosus; R94.31 Abnormal electrocardiogram [ECG] [EKG]; Z79.899 Other long term (current) drug therapy
CPT/HCPCS: 36415; 71045; 80053; 83735; 84132; 84484; 85025; 87081; 93005; 96365; 96366; 96368; 99291; G0378; J3475; J3480

== ENCOUNTER 2021-12-24 18:10 | Outpatient (CLI) | payer MEDICARE, MEDICAID ==
[~2021-12-24 18:10] MED LIST changes: -BACL10TA PO; +BACL10TA2 PO; -CYAN250010 PO; -DIPH-907 PO; +ESCI-8 PO; -FLUT16SP2 BOTHNARES; +HYDR-3927 PO; -HYDR-4383 PO; -IBUP-1984 PO; +IBUP-1986 PO; +LEVO5TAB13 PO; +MAGN64TA8 PO; -METO-411 PO; +METO100T14 PO; +MODA100T31 PO; +MONT-40 PO; -MULT-1085 PO; -ONDA4TAB6 PO; +PANT40TA54 PO; +POTA10TA37 PO; -POTA8TAB69 PO; -ROPI1TAB6 PO; +TRAM50TA2 PO
[2021-12-24 19:06] LABS: ALANINE AMINOTRANSFERASE 17 U/L (12-78); ALBUMIN 3.5 G/DL (3.4-5.0); ALBUMIN/GLOBULIN RATIO 1.1 (1.1-1.5); ALKALINE PHOSPHATASE 40 IU/L (46-116); ANION GAP 9 (8-16); ASPARTATE AMINO TRANSFERASE 17 U/L (10-37); BILIRUBIN,TOTAL 0.2 MG/DL (0.1-1.0); BLOOD UREA NITROGEN 9 MG/DL (7-18); BUN/CREATININE RATIO 10.3 (6.6-38.0); CALCIUM 8.5 MG/DL (8.5-10.1); CHLORIDE 104 MMOL/L (99-107); CREATININE 0.87 MG/DL (0.40-0.90); GLUCOSE 105 MG/DL (70-104); SODIUM 139 MMOL/L (135-145); TOTAL CARBON DIOXIDE 25.6 MMOL/L (24-32); TOTAL PROTEIN 6.8 G/DL (6.4-8.2); eGFR 69 ML/MIN
== END 2021-12-24 23:59 | disposition home or self-care (01) ==
LOC: LAB SPEC 18:10
PROVIDERS: ATTEND Family Medicine
DX: N17.9 Acute kidney failure, unspecified (principal); I10 Essential (primary) hypertension
CPT/HCPCS: 36415; 80053; 83735

== ENCOUNTER 2022-08-21 21:23 | Emergency (ER) | payer MEDICARE, MEDICAID ==
[~2022-08-21] VITALS: Ht 157.5 cm; Wt 113.6 kg
[~2022-08-21 21:23] MED LIST changes: +POTA-206 PO; -POTA10TA37 PO
[2022-08-21 21:33] VITALS: BP 191/95
[2022-08-22] MEDS ORDERED: HYDROcodone/acetaminophen 5mg/325mg tablet PO ONE (00:35)
[2022-08-22] MEDS ORDERED: HYDR-3965 PO (00:36)
[2022-08-22] MEDS ORDERED: IBUP-1986 PO (00:36)
== END 2022-08-22 00:53 | disposition home or self-care (01) ==
LOC: ER 21:24
DX: S86.911A Strain of unspecified muscle(s) and tendon(s) at lower leg level, right leg, initial encounter (principal); M25.561 Pain in right knee; G43.909 Migraine, unspecified, not intractable, without status migrainosus; I10 Essential (primary) hypertension; Z90.49 Acquired absence of other specified parts of digestive tract; Z98.890 Other specified postprocedural states; Z88.8 Allergy status to other drugs, medicaments and biological substances; Z79.899 Other long term (current) drug therapy; X58.XXXA Exposure to other specified factors, initial encounter; Y93.89 Activity, other specified; Y92.89 Other specified places as the place of occurrence of the external cause; Y99.8 Other external cause status
CPT/HCPCS: 93971; 99284

== ENCOUNTER 2023-01-30 18:23 | Emergency (ER) | payer MEDICARE, MEDICAID ==
[~2023-01-30] VITALS: Ht 157.5 cm; Wt 113.6 kg
[2023-01-30] MEDS ORDERED: amLODIPine 5mg tablet PO ONE (18:45)
[2023-01-30 20:47] LABS: BASOPHILS % (AUTO) 0.5 % (0-1); EOSINOPHILS # (AUTO) 0.3 X10'3 (0-0.9); EOSINOPHILS % (AUTO) 3.3 % (0-6); HEMATOCRIT 37.2 % (35.0-45.0); HEMOGLOBIN 12.4 g/dl (12.0-16.0); LYMPHOCYTES # (AUTO) 2.4 X10'3 (1.1-4.8); LYMPHOCYTES % (AUTO) 24.3 % (21-51); MEAN CORPUSCULAR HEMOGLOBIN 29.4 PG (27.0-31.0); MEAN CORPUSCULAR HGB CONC 33.4 g/dL (33.0-36.5); MEAN PLATELET VOLUME 7.5 FL (7.4-10.4); MONOCYTES # (AUTO) 0.6 X10'3 (0-0.9); MONOCYTES % (AUTO) 5.9 % (2-12); NEUTROPHILS # (AUTO) 6.6 X10'3 (1.8-7.7); PLATELET COUNT 308 X10'3 (140-440); RED BLOOD COUNT 4.22 X10'6 (4.20-5.60); RED CELL DISTRIBUTION WIDTH 15.4 % (11.5-14.5)
[2023-01-30 21:08] LABS: ALANINE AMINOTRANSFERASE 49 U/L (12-78); ALBUMIN 4.3 G/DL (3.4-5.0); ALBUMIN/GLOBULIN RATIO 1.1 (1.1-1.5); ALKALINE PHOSPHATASE 58 IU/L (46-116); ANION GAP 13 (8-16); ASPARTATE AMINO TRANSFERASE 33 U/L (10-37); BILIRUBIN,TOTAL 0.3 MG/DL (0.1-1.0); BLOOD UREA NITROGEN 13 MG/DL (7-18); BUN/CREATININE RATIO 11.7 (10.0-20.0); CALCIUM 9.9 MG/DL (8.5-10.1); CHLORIDE 102 MMOL/L (99-107); CREATININE 1.11 MG/DL (0.40-0.90); GLUCOSE 101 MG/DL (70-104); POTASSIUM 3.1 MMOL/L (3.5-5.1); SODIUM 143 MMOL/L (135-145); TOTAL CARBON DIOXIDE 28.4 MMOL/L (24-32); TOTAL PROTEIN 8.1 G/DL (6.4-8.2); eGFR 52 ML/MIN
[2023-01-30] MEDS ORDERED: potassium Cl 20 mEq SR tablet PO STA (21:32)
[2023-01-30] MEDS ORDERED: HYDROcodone/acetaminophen 10/325mg tab PO ONE (21:35)
[2023-01-30] MEDS ORDERED: furosemide 20MG tablet PO ONE (21:35)
[2023-01-30 21:53] VITALS: BP 150/100
== END 2023-01-30 21:57 | disposition home or self-care (01) ==
LOC: ER 18:24
DX: R60.9 Edema, unspecified (principal); I10 Essential (primary) hypertension; G43.909 Migraine, unspecified, not intractable, without status migrainosus; Z91.041 Radiographic dye allergy status; Z90.49 Acquired absence of other specified parts of digestive tract
CPT/HCPCS: 36415; 71045; 80053; 83880; 85025; 93005; 99285

== ENCOUNTER 2024-02-28 18:29 | Inpatient (IN) | payer MEDICARE, MEDICAID ==
[~2024-02-28] VITALS: Ht 157.5 cm; Wt 117.3 kg
[2024-02-28 19:20] LABS: BASOPHILS % (AUTO) 0.4 % (0-1); EOSINOPHILS # (AUTO) 0.3 X10'3 (0-0.9); EOSINOPHILS % (AUTO) 2.9 % (0-6); HEMOGLOBIN 12.1 g/dl (12.0-16.0); LYMPHOCYTES # (AUTO) 2.4 X10'3 (1.1-4.8); MEAN CORPUSCULAR HEMOGLOBIN 30.7 PG (27.0-31.0); MEAN CORPUSCULAR HGB CONC 34.6 g/dL (33.0-36.5); MEAN CORPUSCULAR VOLUME 88.7 FL (78-98); MEAN PLATELET VOLUME 8.1 FL (7.4-10.4); MONOCYTES # (AUTO) 0.8 X10'3 (0-0.9); NEUTROPHILS # (AUTO) 5.9 X10'3 (1.8-7.7); NEUTROPHILS % (AUTO) 62.7 % (42-75); PLATELET COUNT 308 X10'3 (140-440); RED BLOOD COUNT 3.95 X10'6 (4.20-5.60); RED CELL DISTRIBUTION WIDTH 15.5 % (11.5-14.5); WHITE BLOOD COUNT 9.4 X10'3 (4.5-11.0)
[2024-02-28 19:29] LABS: ALANINE AMINOTRANSFERASE 32 U/L (12-78); ALBUMIN 4.3 G/DL (3.4-5.0); ALBUMIN/GLOBULIN RATIO 1.1 (1.1-1.5); ALKALINE PHOSPHATASE 55 IU/L (46-116); ANION GAP 10 (8-16); ASPARTATE AMINO TRANSFERASE 19 U/L (10-37); BILIRUBIN,TOTAL 0.7 MG/DL (0.1-1.0); BLOOD UREA NITROGEN 18 MG/DL (7-18); BUN/CREATININE RATIO 10.8 (10.0-20.0); CHLORIDE 99 MMOL/L (99-107); CREATINE KINASE 164 U/L (26-192); CREATININE 1.67 MG/DL (0.40-0.90); GLUCOSE 117 MG/DL (70-104); SODIUM 140 MMOL/L (135-145); TOTAL CARBON DIOXIDE 31.2 MMOL/L (24-32); TOTAL PROTEIN 8.3 G/DL (6.4-8.2); eCRCL 32 ML/MIN; eGFR 32 ML/MIN
[2024-02-28 19:35] LABS: POTASSIUM 2.2 MMOL/L (3.5-5.1)
[2024-02-28 20:14] LABS: APTT 28 SECONDS (22-32); INR 1.1 INR; PROTHROMBIN TIME 11.2 SECONDS (9.0-12.0)
[2024-02-28] MEDS: Potassium Cl inj 20 MEQ in normal saline 1000ml 990 ML IV SCH (20:17)
[2024-02-28 20:25] LABS: FREE T4 (FREE THYROXINE) 1.03 NG/DL (0.73-1.40); MAGNESIUM 1.3 MG/DL (1.5-2.4); THYROID STIMULATING HORMONE 1.18 ulU/ml (0.34-4.50)
[2024-02-28] MEDS ORDERED: magnesium hydroxide 30ml (MOM) UD suspension PO PRN (21:30)
[2024-02-28] MEDS ORDERED: potassium Cl 20 mEq SR tablet PO PRN ×2 (21:30)
[2024-02-28] MEDS ORDERED: mag hydrox/Alum hydrox/simeth 30ml oral suspension PO PRN (21:30)
[2024-02-28] MEDS ORDERED: acetaminophen 325mg tablet PO PRN (21:30)
[2024-02-28] MEDS ORDERED: ROPI1TAB47 PO (23:46)
[2024-02-28] MEDS ORDERED: HYDROXYZINE PAMOATE 25 MG PO PRN (23:55)
[2024-02-29] VITALS (8 sets, daily range): BP systolic 107–140; BP diastolic 43–78; PULSE 59–67; RESP 14–18; TEMP 97–98.6; O2SAT 94–99
[2024-02-29] MEDS: ibuprofen tablet 400 MG TABLET PO SCH
[2024-02-29] MEDS: traMADol 50MG tablet PO PRN (00:47)
[2024-02-29] MEDS: magnesium Cl slow-release 64mg tablet PO PRN (00:47)
[2024-02-29] MEDS: metoprolol tartrate 50mg tablet PO SCH (01:49)
[2024-02-29] MEDS: hydrOXYzine 25 MG tablet PO SCH (01:49)
[2024-02-29] MEDS: ROPINIRole 1mg tablet PO SCH (01:50)
[2024-02-29] MEDS: baclofen 10mg tablet PO SCH (01:50)
[2024-02-29] MEDS: ESCITALOPRAM 10 mg tablet 10 MG TABLET PO SCH (01:54)
[2024-02-29 06:29] LABS: ALBUMIN 3.5 G/DL (3.4-5.0); ANION GAP 11 (8-16); BLOOD UREA NITROGEN 14 MG/DL (7-18); BUN/CREATININE RATIO 13.2 (10.0-20.0); CALCIUM 8.3 MG/DL (8.5-10.1); CHLORIDE 102 MMOL/L (99-107); CREATININE 1.06 MG/DL (0.40-0.90); GLUCOSE 100 MG/DL (70-104); MAGNESIUM 1.3 MG/DL (1.5-2.4); SODIUM 140 MMOL/L (135-145); TOTAL CARBON DIOXIDE 27.1 MMOL/L (24-32); eCRCL 50 ML/MIN; eGFR 55 ML/MIN
[2024-02-29 06:32] LABS: BASOPHILS % (AUTO) 0.3 % (0-1); EOSINOPHILS # (AUTO) 0.2 X10'3 (0-0.9); EOSINOPHILS % (AUTO) 2.3 % (0-6); HEMATOCRIT 32.3 % (35.0-45.0); HEMOGLOBIN 11.1 g/dl (12.0-16.0); LYMPHOCYTES % (AUTO) 23.1 % (21-51); MEAN CORPUSCULAR HEMOGLOBIN 31.3 PG (27.0-31.0); MEAN CORPUSCULAR HGB CONC 34.5 g/dL (33.0-36.5); MEAN CORPUSCULAR VOLUME 90.8 FL (78-98); MEAN PLATELET VOLUME 8.1 FL (7.4-10.4); MONOCYTES # (AUTO) 0.8 X10'3 (0-0.9); MONOCYTES % (AUTO) 9.1 % (2-12); NEUTROPHILS # (AUTO) 5.6 X10'3 (1.8-7.7); NEUTROPHILS % (AUTO) 65.2 % (42-75); PLATELET COUNT 242 X10'3 (140-440); RED BLOOD COUNT 3.55 X10'6 (4.20-5.60); RED CELL DISTRIBUTION WIDTH 15.5 % (11.5-14.5); WHITE BLOOD COUNT 8.7 X10'3 (4.5-11.0)
[2024-02-29 06:33] LABS: POTASSIUM 2.2 MMOL/L (3.5-5.1)
[2024-02-29] MEDS: potassium Cl 40MEQ/1/2NS 520ml 520 ML IV PRN (07:28)
[2024-02-29] MEDS: pantoprazole 40mg Tablet.DR PO SCH (07:32)
[2024-02-29] MEDS: montelukast 10mg tablet PO SCH (07:32)
[2024-02-29] MEDS ORDERED: ROPINIRole 1mg tablet PO SCH (08:00)
[2024-02-29] MEDS: LEVOCETIRIZINE DIHYDROCHLORIDE 5 MG PO SCH (08:00)
[2024-02-29] MEDS: K and/or MAG REPLACEMENT MC SCH (08:00)
[2024-02-29] MEDS ORDERED: ESCITALOPRAM 10 mg tablet 10 MG TABLET PO SCH (08:00)
[2024-02-29] MEDS ORDERED: metoprolol tartrate 50mg tablet PO SCH (08:00)
[2024-02-29] MEDS: magnesium sulf-water 4G/100mL 100 ML IV PRN (08:21)
[2024-02-29] MEDS: modafinil 100mg tablet PO SCH (09:29)
[2024-02-29] MEDS: magnesium sulf-water 2g/50mL 50 ML IV PRN (11:03)
[2024-02-29] MEDS: diphenhydrAMINE 25mg capsule PO PRN (13:13)
[2024-02-29 17:30] LABS: BILIRUBIN,URINE NEGATIVE (Neg); CLARITY,URINE SLIGHTLY CLOUDY (Clear); COLOR,URINE YELLOW (Yellow); GLUCOSE, URINE NEGATIVE (Neg); KETONES,URINE NEGATIVE (Neg); LEUKOCYTE ESTERASE ,URINE MODERATE (Neg); NITRITES, URINE NEGATIVE (Neg); OCCULT BLOOD,URINE NEGATIVE (Neg); PROTEIN,URINE NEGATIVE (Neg); UROBILINOGEN,URINE 0.2 E.U/dL (0.2-1.0)
[2024-02-29 17:31] LABS: POTASSIUM 3.3 MMOL/L (3.5-5.1)
[2024-02-29 17:44] LABS: UA COLLECTION TYPE CLN CATCH MIDSTREAM
[2024-02-29 17:45] LABS: SQUAMOUS EPITHELIAL CELL,UR MANY /LPF (FEW)
[2024-02-29 17:45] LABS: FREE T4 (FREE THYROXINE) 0.87 NG/DL (0.73-1.40); THYROID STIMULATING HORMONE 0.56 ulU/ml (0.34-4.50)
[2024-02-29 17:46] LABS: HYALINE CASTS >30 /LPF (NEGATIVE)
[2024-02-29 17:49] LABS: BACTERIA,URINE 2+ /HPF (Neg); TOTAL PROTEIN,URINE RANDOM 46.7 MG/DL; WBC,URINE 50-100 /HPF (0-4)
[2024-02-29 17:50] LABS: RBC,URINE 0-2 /HPF (0-2)
[2024-02-29] MEDS ORDERED: baclofen 10mg tablet PO SCH (21:00)
[2024-02-29] MEDS: diatr meglu/diatrizoate 30ml oral sol.-(3 dose) bottle PO SCH (21:09)
[2024-02-29] MEDS: ondansetron/PF 4mg/2ml inj IV PRN (21:58)
[2024-02-29] MEDS: diphenhydrAMINE 50 mg/ml inj IV PRN (21:59)
[2024-02-29] MEDS: acetaminophen 1,000mg/100ml IV 100 ML IV ONE (23:11)
[2024-03-01] VITALS (8 sets, daily range): BP systolic 96–145; BP diastolic 40–70; PULSE 53–76; RESP 14–20; TEMP 97.1–98.4; O2SAT 96–100
[2024-03-01] MEDS: magnesium oxide 400mg tablet PO SCH
[2024-03-01 07:06] LABS: BASOPHILS % (AUTO) 0.6 % (0-1); EOSINOPHILS # (AUTO) 0.2 X10'3 (0-0.9); EOSINOPHILS % (AUTO) 3.8 % (0-6); HEMATOCRIT 29.6 % (35.0-45.0); HEMOGLOBIN 10.3 g/dl (12.0-16.0); LYMPHOCYTES # (AUTO) 1.9 X10'3 (1.1-4.8); LYMPHOCYTES % (AUTO) 31.1 % (21-51); MEAN CORPUSCULAR HEMOGLOBIN 31.5 PG (27.0-31.0); MEAN CORPUSCULAR HGB CONC 34.8 g/dL (33.0-36.5); MEAN CORPUSCULAR VOLUME 90.5 FL (78-98); MONOCYTES # (AUTO) 0.5 X10'3 (0-0.9); MONOCYTES % (AUTO) 8.1 % (2-12); NEUTROPHILS # (AUTO) 3.4 X10'3 (1.8-7.7); NEUTROPHILS % (AUTO) 56.4 % (42-75); PLATELET COUNT 227 X10'3 (140-440); RED BLOOD COUNT 3.27 X10'6 (4.20-5.60); RED CELL DISTRIBUTION WIDTH 15.8 % (11.5-14.5); WHITE BLOOD COUNT 6.1 X10'3 (4.5-11.0)
[2024-03-01 07:16] LABS: ANION GAP 4 (8-16); BLOOD UREA NITROGEN 12 MG/DL (7-18); BUN/CREATININE RATIO 11.3 (10.0-20.0); CALCIUM 8.2 MG/DL (8.5-10.1); CHLORIDE 109 MMOL/L (99-107); CREATININE 1.06 MG/DL (0.40-0.90); GLUCOSE 155 MG/DL (70-104); MAGNESIUM 2.4 MG/DL (1.5-2.4); POTASSIUM 3.1 MMOL/L (3.5-5.1); SODIUM 141 MMOL/L (135-145); TOTAL CARBON DIOXIDE 28.4 MMOL/L (24-32); eCRCL 50 ML/MIN; eGFR 55 ML/MIN
[2024-03-01] MEDS: spironolactone 50 MG tablet PO SCH (07:17)
[2024-03-01] MEDS ORDERED: iohexol 300mg/ml 100ml inj. ONE (09:30)
[2024-03-01] MEDS: normal saline 1000ml 1,000 ML IV SCH (15:29)
[2024-03-01 17:48] LABS: MAGNESIUM 2.1 MG/DL (1.5-2.4); POTASSIUM 3.8 MMOL/L (3.5-5.1)
[2024-03-02 02:00] VITALS: BP 118/48; PULSE 59; RESP 17; TEMP 97.5; O2SAT 99
[2024-03-02 06:00] VITALS: BP 124/56; PULSE 62; RESP 14; TEMP 97.8; O2SAT 96
[2024-03-02 06:08] LABS: ANION GAP 8 (8-16); BLOOD UREA NITROGEN 11 MG/DL (7-18); CALCIUM 8.3 MG/DL (8.5-10.1); CHLORIDE 108 MMOL/L (99-107); CREATININE 0.92 MG/DL (0.40-0.90); GLUCOSE 146 MG/DL (70-104); MAGNESIUM 1.9 MG/DL (1.5-2.4); POTASSIUM 3.4 MMOL/L (3.5-5.1); SODIUM 143 MMOL/L (135-145); eCRCL 57 ML/MIN; eGFR 64 ML/MIN
[2024-03-02 06:22] LABS: BASOPHILS % (AUTO) 0.5 % (0-1); EOSINOPHILS # (AUTO) 0.4 X10'3 (0-0.9); EOSINOPHILS % (AUTO) 4.9 % (0-6); HEMATOCRIT 30.1 % (35.0-45.0); HEMOGLOBIN 10.3 g/dl (12.0-16.0); LYMPHOCYTES # (AUTO) 2.2 X10'3 (1.1-4.8); MEAN CORPUSCULAR HGB CONC 34.2 g/dL (33.0-36.5); MEAN CORPUSCULAR VOLUME 90.6 FL (78-98); MEAN PLATELET VOLUME 8.4 FL (7.4-10.4); MONOCYTES # (AUTO) 0.6 X10'3 (0-0.9); MONOCYTES % (AUTO) 7.6 % (2-12); NEUTROPHILS # (AUTO) 4.3 X10'3 (1.8-7.7); PLATELET COUNT 238 X10'3 (140-440); RED BLOOD COUNT 3.32 X10'6 (4.20-5.60); WHITE BLOOD COUNT 7.5 X10'3 (4.5-11.0)
[2024-03-02 08:40] VITALS: RESP 16; O2SAT 96
[2024-03-02 11:00] VITALS: BP 136/78; PULSE 54; RESP 12; TEMP 98.1; O2SAT 96
[2024-03-02] MEDS ORDERED: FAMO20TA8 PO (12:21)
[2024-03-02] MEDS ORDERED: SPIR50TA5 PO (12:21)
[2024-03-02] MEDS: heparin sodium, porcine/PF 100unit/ml 5ML syringe IV ONE ×2 (14:30→15:34)
[2024-03-02] MEDS ORDERED: famotidine 20mg tablet PO SCH (20:00)
[2024-03-08 16:34] LABS: RENIN, PLASMA 1.1 ng/mL/hr (.)
== END 2024-03-02 15:39 | disposition home or self-care (01) | DRG 643 ==
LOC: ER 18:30 → ED HOLD 21:30 → OBSVTOIN 21:30 → PCU 3S 02-29
PROVIDERS: ADMIT Internal Medicine Critical Care Medicine; ATTEND Internal Medicine
PROC: BW251ZZ Computerized Tomography (CT Scan) of Chest, Abdomen and Pelvis using Low Osmolar Contrast (ICD-10-PCS; principal; 2024-03-01)
DX: E26.81 Bartter's syndrome (principal); N17.0 Acute kidney failure with tubular necrosis; N39.0 Urinary tract infection, site not specified; E87.6 Hypokalemia; E86.0 Dehydration; G35 Multiple sclerosis; I10 Essential (primary) hypertension; G89.29 Other chronic pain; E83.42 Hypomagnesemia; G43.909 Migraine, unspecified, not intractable, without status migrainosus; K21.9 Gastro-esophageal reflux disease without esophagitis; G25.81 Restless legs syndrome; Z90.49 Acquired absence of other specified parts of digestive tract; Z91.041 Radiographic dye allergy status; Z79.899 Other long term (current) drug therapy; Z87.891 Personal history of nicotine dependence
CPT/HCPCS: 36415; 71045; 71260; 74177; 80048; 80053; 81001; 82088; 82436; 82550; 82570; 83586; 83735; 84132; 84133; 84156; 84244; 84300; 84439; 84443; 84484; 85025; 85610; 85730; 87081; 87088; 93005; 99291; G0378; J0131; J1200; J1642; J2405; J3475; J3480; J7030; J7040; Q0163; Q0177; Q9963; Q9967